=== PATIENT | female | born 1970 | race Caucasian/White ===

== ENCOUNTER 2018-03-03 10:58 | Emergency (ER) | payer MEDICARE, OTHER ==
[~2018-03-03] VITALS: Ht 170.2 cm; Wt 90.9 kg
[~2018-03-03 10:58] MED LIST: ASPIRIN EC325 MG PO; B12-ACTIVE1 MG PO; CILOSTAZOL100 MG PO; EFFIENT10 MG PO; IRON (FERROUS S50 MG PO; ISOSORBIDE MONO60 MG PO; LEVOTHYROXIN25 MC1 PO; LISINOPRIL10 MG PO; METOPROL TAR25 MG PO; MIDODRINE HCL2.5 MG PO; NITROSTAT0.4 MG SL; PRAVASTATIN SOD20 MG PO; PRILOSEC20 MG PO; RANEXA ER PO; VENLAFAXINE HCL75 M1 PO; WELLBUTRIN SR150 MG PO
[2018-03-03] MEDS ORDERED: KEFLEX500 M1 PO (11:58)
[2018-03-03 12:16] VITALS: BP 157/89
[2018-03-04] MEDS ORDERED: GABAPENTIN100 MG PO (14:13)
[2018-03-04] MEDS ORDERED: ISOSORB MONO60 M1 PO (14:14)
[2018-03-04] MEDS ORDERED: BUDEPRION150 MG PO (14:14)
[2018-03-04] MEDS ORDERED: NYSTATI1 TOP ×2 (14:22→14:23)
== END 2018-03-03 12:17 | disposition home or self-care (01) ==
LOC: ED 10:58
PROC: 0H9CXZZ Drainage of Left Upper Arm Skin, External Approach (ICD-10-PCS; principal; 2018-03-03)
DX: L02.412 Cutaneous abscess of left axilla (principal); B95.7 Other staphylococcus as the cause of diseases classified elsewhere; I10 Essential (primary) hypertension; I25.10 Atherosclerotic heart disease of native coronary artery without angina pectoris; Z86.14 Personal history of Methicillin resistant Staphylococcus aureus infection; F17.210 Nicotine dependence, cigarettes, uncomplicated; R07.9 Chest pain, unspecified

== ENCOUNTER 2018-03-04 13:14 | Emergency (ER) | payer MEDICARE, OTHER ==
[~2018-03-04] VITALS: Ht 170.2 cm; Wt 90.0 kg
[~2018-03-04 13:14] MED LIST changes: +KEFLEX500 M1 PO
[2018-03-04] MEDS ORDERED: GABAPENTIN100 MG PO (14:13)
[2018-03-04] MEDS ORDERED: BUDEPRION150 MG PO (14:14)
[2018-03-04] MEDS ORDERED: ISOSORB MONO60 M1 PO (14:14)
[2018-03-04] MEDS ORDERED: NYSTATI1 TOP ×2 (14:22→14:23)
[2018-03-04 14:25] VITALS: BP 116/53
== END 2018-03-04 14:25 | disposition home or self-care (01) ==
LOC: ED 13:14
DX: Z48.01 Encounter for change or removal of surgical wound dressing (principal); I11.9 Hypertensive heart disease without heart failure; I25.10 Atherosclerotic heart disease of native coronary artery without angina pectoris; E78.00 Pure hypercholesterolemia, unspecified; F17.210 Nicotine dependence, cigarettes, uncomplicated

== ENCOUNTER 2019-10-25 | Emergency (ER) | payer MEDICARE, OTHER ==
[~2019-10-25] MED LIST changes: +BUDEPRION150 MG PO; +GABAPENTIN100 MG PO; +ISOSORB MONO60 M1 PO; +NYSTATI1 TOP
[2019-10-25 21:28] LABS: ALBUMIN 4.4 g/dL (3.2-5.0); ALKALINE PHOSPHATASE 71 u/l (38-126); ANION GAP 14 (6-22 (CALC)); BILIRUBIN, TOTAL 0.3 mg/dL (0.0-1.4); BUN 9 mg/dL (7-17); BUN/CREATININE RATIO 12 (12-20 (CALC)); CARBON DIOXIDE 24 mmol/l (22-30); CHLORIDE 99 mmol/l (95-108); CREATININE 0.8 mg/dL (0.5-1.0); GFR > 60 ML/MIN (>=60 (CALC)); GFR FOR AFR.AMER. > 60 ML/MIN (>=60 (CALC)); HEMATOCRIT 34.6 % (37.0-47.0); HEMOGLOBIN 11.5 g/dl (12.0-16.0); IMMATURE GRANULOCYTES 0.5 % (0.0-5.0); MEAN CELL VOLUME 97.7 fL CALC (80.0-100.0); MEAN CORPUSCULAR HGB 32.5 pG CALC (26.0-32.0); MEAN CORPUSCULAR HGB CONC 33.2 g/L CALC (32.0-36.0); NEUT# 4.78 thou/uL (2.00-7.15); POTASSIUM 3.8 mmol/l (3.5-5.1); RED BLOOD COUNT 3.54 mill/uL (4.20-5.60); RED CELL DISTRI WIDTH 13.6 % (11.5-15.5); SGOT/AST 59 u/l (14-36); SODIUM 133 mmol/l (137-146)
[2019-10-25] MEDS ORDERED: PREDNISONE50 MG PO (22:10)
[2019-10-25] MEDS ORDERED: DOXYCYCL HYC100 MG PO (22:10)
== END 2019-10-25 22:32 | disposition home or self-care (01) ==
PROVIDERS: Family Medicine
DX: J44.1 Chronic obstructive pulmonary disease with (acute) exacerbation (principal); I10 Essential (primary) hypertension; I25.10 Atherosclerotic heart disease of native coronary artery without angina pectoris; F17.200 Nicotine dependence, unspecified, uncomplicated

== ENCOUNTER 2019-12-09 10:51 | Observation (INO) | payer MEDICARE, OTHER ==
[~2019-12-09] VITALS: Ht 170.2 cm; Wt 93.0 kg
[~2019-12-09 10:51] MED LIST changes: +DOXYCYCL HYC100 MG PO; +PREDNISONE50 MG PO
[2019-12-09 11:35] LABS: URINE BILIRUBIN - DIPSTICK NEGATIVE (NEGATIVE); URINE BLOOD DIPSTICK NEGATIVE (NEGATIVE); URINE COLOR YELLOW; URINE GLUCOSE - DIPSTICK NEGATIVE (NEGATIVE); URINE KETONE NEGATIVE (NEGATIVE); URINE LEUK ESTERASE NEGATIVE (NEGATIVE); URINE NITRITE - DIPSTICK NEGATIVE (Negative); URINE PROTEIN - DIPSTICK NEGATIVE (NEG-TRACE); URINE UROBILINOGEN - DIPSTICK 0.2 E.U./dL (0.2)
[2019-12-09 11:40] LABS: HEMATOCRIT 34.2 % (37.0-47.0); HEMOGLOBIN 11.3 g/dl (12.0-16.0); IMMATURE GRANULOCYTES 0.6 % (0.0-5.0); MEAN CELL VOLUME 94.7 fL CALC (80.0-100.0); MEAN CORPUSCULAR HGB 31.3 pG CALC (26.0-32.0); NEUT# 2.76 thou/uL (2.00-7.15); RED BLOOD COUNT 3.61 mill/uL (4.20-5.60); RED CELL DISTRI WIDTH 14.1 % (11.5-15.5)
[2019-12-09 11:46] LABS: ALKALINE PHOSPHATASE 68 u/l (38-126); ANION GAP 12 (6-22 (CALC)); BUN 9 mg/dL (7-17); BUN/CREATININE RATIO 14 (12-20 (CALC)); CARBON DIOXIDE 24 mmol/l (22-30); CHLORIDE 106 mmol/l (95-108); CREATININE 0.6 mg/dL (0.5-1.0); GFR > 60 ML/MIN (>=60 (CALC)); GFR FOR AFR.AMER. > 60 ML/MIN (>=60 (CALC)); POTASSIUM 4.3 mmol/l (3.5-5.1); SGOT/AST 26 u/l (14-36); SODIUM 138 mmol/l (137-146); TOTAL PROTEIN 6.8 g/dL (6.3-8.2)
[2019-12-09 11:52] LABS: BILIRUBIN, TOTAL 0.5 mg/dL (0.0-1.4)
[2019-12-09 11:58] LABS: MYOGLOBIN 20 ng/mL (0 - 62)
[2019-12-09 13:37] LABS: CHOLESTEROL HDL RATIO 4.1 (<4.4 (CALC)); MAGNESIUM 1.9 mg/dL (1.6-2.3)
[2019-12-09 14:59] VITALS: BP 148/71
[2019-12-09] MEDS ORDERED: CVS OMEPRAZOLE20 MG PO (17:12)
[2019-12-09] MEDS ORDERED: LEVOTHYROXIN50 MCG PO (17:13)
[2019-12-09] MEDS ORDERED: CILOSTAZOL50 MG PO (17:14)
[2019-12-09] MEDS ORDERED: OTEZLA 10 & 201 TAB PO (17:16)
[2019-12-09] MEDS ORDERED: GABAPENTIN300 M2 PO (17:16)
[2019-12-09] MEDS ORDERED: TIZANIDINE2 MG PO (17:17)
[2019-12-09] MEDS ORDERED: ALAVERT10 M1 PO (17:17)
[2019-12-09] MEDS ORDERED: ZESTRIL10 M1 PO (17:18)
[2019-12-09] MEDS ORDERED: LIPITOR40 M1 PO (17:18)
[2019-12-09] MEDS ORDERED: FENOFIBRATE160 MG PO (17:19)
[2019-12-09] MEDS ORDERED: LYRICA100 MG PO (17:19)
[2019-12-09 19:20] VITALS: BP 113/67
[2019-12-09 23:46] VITALS: BP 102/62
[2019-12-10 04:00] VITALS: BP 98/62
[2019-12-10 08:06] VITALS: BP 115/65
[2019-12-10 11:31] VITALS: BP 105/57
== END 2019-12-10 13:53 | disposition home or self-care (01) ==
LOC: ED 10:51 → ED-I 12:20 → ED 12:38 → MS2 12:39 → ED-I 12:39 → MS2 14:00
PROVIDERS: Emergency Medicine; Nurse Practitioner Family; ADMIT Internal Medicine; ATTEND Internal Medicine
DX: R07.89 Other chest pain (principal); I10 Essential (primary) hypertension; I25.10 Atherosclerotic heart disease of native coronary artery without angina pectoris; G62.9 Polyneuropathy, unspecified; J43.9 Emphysema, unspecified; E03.9 Hypothyroidism, unspecified; I73.9 Peripheral vascular disease, unspecified; E78.5 Hyperlipidemia, unspecified; F17.200 Nicotine dependence, unspecified, uncomplicated; I25.2 Old myocardial infarction; Z95.5 Presence of coronary angioplasty implant and graft; Z95.828 Presence of other vascular implants and grafts
CPT/HCPCS: G0378

== ENCOUNTER 2020-08-14 08:54 | Emergency (ER) | payer MEDICARE, OTHER ==
[~2020-08-14] VITALS: Ht 170.2 cm; Wt 75.0 kg
[~2020-08-14 08:54] MED LIST changes: +ALAVERT10 M1 PO; +CILOSTAZOL50 MG PO; +CVS OMEPRAZOLE20 MG PO; +FENOFIBRATE160 MG PO; +GABAPENTIN300 M2 PO; +LEVOTHYROXIN50 MCG PO; +LIPITOR40 M1 PO; +LYRICA100 MG PO; +OTEZLA 10 & 201 TAB PO; +TIZANIDINE2 MG PO; +ZESTRIL10 M1 PO
[2020-08-14 10:25] LABS: HEMATOCRIT 31.4 % (37.0-47.0); HEMOGLOBIN 9.9 g/dl (12.0-16.0); IMMATURE GRANULOCYTES 0.5 % (0.0-5.0); MEAN CELL VOLUME 97.2 fL CALC (80.0-100.0); MEAN CORPUSCULAR HGB 30.7 pG CALC (26.0-32.0); MEAN CORPUSCULAR HGB CONC 31.5 g/dL CAL (32.0-36.0); NEUT# 8.67 thou/uL (2.00-7.15); RED BLOOD COUNT 3.23 mill/uL (4.20-5.60); RED CELL DISTRI WIDTH 15.4 % (11.5-15.5)
[2020-08-14 10:34] LABS: GFR > 60 ML/MIN (>=60 (CALC)); GFR FOR AFR.AMER. > 60 ML/MIN (>=60 (CALC))
[2020-08-14 10:48] LABS: ALBUMIN 4.1 g/dL (3.2-5.0); ALKALINE PHOSPHATASE 68 u/l (38-126); ANION GAP 13 (6-22 (CALC)); BILIRUBIN, TOTAL 0.7 mg/dL (0.0-1.4); BUN 11 mg/dL (7-17); BUN/CREATININE RATIO 14 (12-20 (CALC)); CARBON DIOXIDE 26 mmol/l (22-30); CHLORIDE 100 mmol/l (95-108); CREATININE 0.8 mg/dL (0.5-1.0); GFR > 60 ML/MIN (>=60 (CALC)); GFR FOR AFR.AMER. > 60 ML/MIN (>=60 (CALC)); POTASSIUM 4.4 mmol/l (3.5-5.1); SGOT/AST 32 u/l (14-36); SODIUM 134 mmol/l (137-146); TOTAL PROTEIN 7.5 g/dL (6.3-8.2)
[2020-08-14] MEDS ORDERED: VENTOLIN HFA IN (11:23)
[2020-08-14] MEDS ORDERED: BUPROPN HCL300 MG PO (11:27)
[2020-08-14] MEDS ORDERED: PLAVIX75 MG PO (11:29)
[2020-08-14] MEDS ORDERED: EQL VITAMIN B500 MCG PO (11:58)
[2020-08-14] MEDS ORDERED: FISH OIL1000 MG PO (12:05)
[2020-08-14] MEDS ORDERED: FERRAPLUS 90 PO (12:09)
[2020-08-14] MEDS ORDERED: MULTI VIT PO (12:13)
[2020-08-14] MEDS ORDERED: OTEZLA 10 & 201 TAB PO (12:15)
[2020-08-14] MEDS ORDERED: OXYCODONE5 M1 PO (12:16)
[2020-08-14] MEDS ORDERED: PROTONIX40 M2 PO (12:17)
[2020-08-14] MEDS ORDERED: ANORO ELLIPTA 61 AER IN (12:21)
[2020-08-14] MEDS ORDERED: BACTRIM DS1 TAB PO (12:24)
[2020-08-14 12:54] VITALS: BP 121/77
== END 2020-08-14 12:53 | disposition home or self-care (01) ==
LOC: ED 08:54
PROVIDERS: Family Medicine
DX: T81.43XA Infection following a procedure, organ and space surgical site, initial encounter (principal); L02.415 Cutaneous abscess of right lower limb; I73.9 Peripheral vascular disease, unspecified; I10 Essential (primary) hypertension; I25.10 Atherosclerotic heart disease of native coronary artery without angina pectoris; F17.200 Nicotine dependence, unspecified, uncomplicated; Y83.2 Surgical operation with anastomosis, bypass or graft as the cause of abnormal reaction of the patient, or of later complication, without mention of misadventure at the time of the procedure; Z95.5 Presence of coronary angioplasty implant and graft; Z95.828 Presence of other vascular implants and grafts
CPT/HCPCS: Q9967

== ENCOUNTER 2020-08-15 09:10 | Emergency (ER) | payer MEDICARE, OTHER ==
[~2020-08-15] VITALS: Ht 170.2 cm; Wt 85.0 kg
[~2020-08-15 09:10] MED LIST changes: +ANORO ELLIPTA 61 AER IN; +BACTRIM DS1 TAB PO; +BUPROPN HCL300 MG PO; +EQL VITAMIN B500 MCG PO; +FERRAPLUS 90 PO; +FISH OIL1000 MG PO; +MULTI VIT PO; +OXYCODONE5 M1 PO; +PLAVIX75 MG PO; +PROTONIX40 M2 PO; +VENTOLIN HFA IN
[2020-08-15 10:04] LABS: HEMATOCRIT 31.3 % (37.0-47.0); HEMOGLOBIN 9.8 g/dl (12.0-16.0); IMMATURE GRANULOCYTES 0.6 % (0.0-5.0); MEAN CELL VOLUME 95.7 fL CALC (80.0-100.0); MEAN CORPUSCULAR HGB CONC 31.3 g/dL CAL (32.0-36.0); NEUT# 9.52 thou/uL (2.00-7.15); RED BLOOD COUNT 3.27 mill/uL (4.20-5.60); RED CELL DISTRI WIDTH 15.1 % (11.5-15.5)
[2020-08-15 10:27] LABS: ALBUMIN 4.2 g/dL (3.2-5.0); ALKALINE PHOSPHATASE 73 u/l (38-126); ANION GAP 15 (6-22 (CALC)); BILIRUBIN, TOTAL 0.9 mg/dL (0.0-1.4); BUN 11 mg/dL (7-17); BUN/CREATININE RATIO 12 (12-20 (CALC)); CARBON DIOXIDE 23 mmol/l (22-30); CHLORIDE 100 mmol/l (95-108); CREATININE 0.9 mg/dL (0.5-1.0); GFR > 60 ML/MIN (>=60 (CALC)); GFR FOR AFR.AMER. > 60 ML/MIN (>=60 (CALC)); POTASSIUM 4.1 mmol/l (3.5-5.1); SGOT/AST 28 u/l (14-36); SODIUM 133 mmol/l (137-146); TOTAL PROTEIN 7.9 g/dL (6.3-8.2)
[2020-08-15 10:47] LABS: ACT PARTIAL THROMBO TIME 26.8 SECONDS (20.0-32.5); INTERNATIONAL NORMALIZED RATIO 1.1 RATIO (0.7-1.3); PROTHROMBIN TIME 10.8 SECONDS (9.0-12.5)
[2020-08-15 12:05] VITALS: BP 95/50
== END 2020-08-15 12:05 | disposition short-term general hospital (02) ==
LOC: ED 09:10
DX: T81.43XA Infection following a procedure, organ and space surgical site, initial encounter (principal); L02.415 Cutaneous abscess of right lower limb; I73.9 Peripheral vascular disease, unspecified; I10 Essential (primary) hypertension; I25.10 Atherosclerotic heart disease of native coronary artery without angina pectoris; F17.200 Nicotine dependence, unspecified, uncomplicated; Y83.2 Surgical operation with anastomosis, bypass or graft as the cause of abnormal reaction of the patient, or of later complication, without mention of misadventure at the time of the procedure; Z95.828 Presence of other vascular implants and grafts; Z95.5 Presence of coronary angioplasty implant and graft

== ENCOUNTER 2022-05-11 15:15 | Emergency (ER) | payer MEDICARE, OTHER ==
[2022-05-11] VITALS (7 sets, daily range): BP systolic 113–130; BP diastolic 50–61
[~2022-05-11] VITALS: Ht 170.2 cm; Wt 92.5 kg
[~2022-05-11 15:15] MED LIST changes: +ASPIRIN 81 LOW81 MG PO; +LASIX 40 MG TAB40 MG PO
[2022-05-11 17:17] LABS: URINE BILIRUBIN - DIPSTICK NEGATIVE (NEGATIVE); URINE BLOOD DIPSTICK NEGATIVE (NEGATIVE); URINE COLOR YELLOW; URINE GLUCOSE - DIPSTICK NEGATIVE (NEGATIVE); URINE KETONE NEGATIVE (NEGATIVE); URINE LEUK ESTERASE NEGATIVE (NEGATIVE); URINE PROTEIN - DIPSTICK NEGATIVE (NEG-TRACE); URINE SPECIFIC GRAVITY >=1.030; URINE UROBILINOGEN - DIPSTICK 0.2 E.U./dL (0.2)
[2022-05-11 17:18] LABS: URINE NITRITE - DIPSTICK NEGATIVE (Negative)
[2022-05-11 17:19] LABS: HEMOGLOBIN 11.7 g/dl (12.0-16.0); IMMATURE GRANULOCYTES 0.2 % (0.0-5.0); MEAN CELL VOLUME 95.2 fL CALC (80.0-100.0); MEAN CORPUSCULAR HGB CONC 32.5 g/dL CAL (32.0-36.0); NEUT# 7.76 thou/uL (2.00-7.15); RED BLOOD COUNT 3.78 mill/uL (4.20-5.60); RED CELL DISTRI WIDTH 13.9 % (11.5-15.5)
[2022-05-11 17:38] LABS: ALBUMIN 4.1 g/dL (3.2-5.0); ALKALINE PHOSPHATASE 100 u/l (38-126); ANION GAP 12 (6-22 (CALC)); BILIRUBIN, TOTAL 0.3 mg/dL (0.0-1.4); BUN 9 mg/dL (7-17); BUN/CREATININE RATIO 12 (12-20 (CALC)); CARBON DIOXIDE 31 mmol/l (22-30); CHLORIDE 99 mmol/l (95-108); CREATININE 0.8 mg/dL (0.5-1.0); GFR FOR AFR.AMER. > 60 ML/MIN (>=60 (CALC)); GFR OTHER RACES > 60 ML/MIN (>=60 (CALC)); LIPASE 63 u/l (23-300); POTASSIUM 3.8 mmol/l (3.5-5.1); SGOT/AST 20 u/l (14-36); SODIUM 138 mmol/l (137-146); TOTAL PROTEIN 7.3 g/dL (6.3-8.2)
[2022-05-11] MEDS ORDERED: ZPAK PO (19:14)
== END 2022-05-11 19:10 | disposition home or self-care (01) ==
LOC: ED 15:15
PROVIDERS: Nurse Practitioner
DX: J18.9 Pneumonia, unspecified organism (principal); I11.0 Hypertensive heart disease with heart failure; I50.9 Heart failure, unspecified; E11.40 Type 2 diabetes mellitus with diabetic neuropathy, unspecified; J44.9 Chronic obstructive pulmonary disease, unspecified; I25.10 Atherosclerotic heart disease of native coronary artery without angina pectoris; F41.9 Anxiety disorder, unspecified; F32.A Depression, unspecified; K21.9 Gastro-esophageal reflux disease without esophagitis; F17.210 Nicotine dependence, cigarettes, uncomplicated; Z86.14 Personal history of Methicillin resistant Staphylococcus aureus infection; Z95.5 Presence of coronary angioplasty implant and graft